=== PATIENT | male | born 1990 | race Caucasian/White ===

== ENCOUNTER 2021-05-04 11:18 | Emergency (ER) | payer BC, OTHER | END 2021-05-04 15:06 | disposition home or self-care (01) | LOC: ER1 11:18 | DX: J06.9 Acute upper respiratory infection, unspecified (principal); Z20.822 Contact with and (suspected) exposure to COVID-19; E11.9 Type 2 diabetes mellitus without complications | CPT/HCPCS: 99283; U0002 ==

== ENCOUNTER 2021-06-27 10:19 | Emergency (ER) | payer OTHER ==
[~2021-06-27] VITALS: Ht 180.3 cm; Wt 72.6 kg
[2021-06-27 11:43] LABS: BORDETELLA PARAPERTUSSIS Not Detected (Not Detectd); BORDETELLA PERTUSSIS Not Detected (Not Detectd); CHLAMYDIA PNEUMONIAE Not Detected (Not Detectd); CORONAVIRUS HKU1 Not Detected (Not Detectd); CORONAVIRUS NL63 Not Detected (Not Detectd); CORONAVIRUS OC43 Not Detected (Not Detectd); CORONOAVIRUS 229E Not Detected (Not Detectd); HUMAN METAPNEUMOVIRUS Not Detected (Not Detectd); HUMAN RHINOVIRUS/ENTEROVIRUS Not Detected (Not Detectd); INFLUENZA A Not Detected (Not Detectd); INFLUENZA B Not Detected (Not Detectd); MYCOPLASMA PNEUMONIAE Not Detected (Not Detectd); PARAINFLUENZA VIRUS 1 Not Detected (Not Detectd); PARAINFLUENZA VIRUS 2 Not Detected (Not Detectd); PARAINFLUENZA VIRUS 3 Not Detected (Not Detectd); PARAINFLUENZA VIRUS 4 Not Detected (Not Detectd); RESPIRATORY SYNCYTIAL VIRUS Not Detected (Not Detectd)
[2021-06-27 11:50] LABS: HEMOGLOBIN 16.1 gm/dl (14.0-17.5); RED BLOOD COUNT 5.14 M/UL (4.20-5.50); WHITE BLOOD COUNT 3.7 K/UL (4.5-11.0)
[2021-06-27 12:04] LABS: BUN/CREATININE RATIO 13 (0-10)
[2021-06-27 13:04] LABS: SARS-CoV-2 DETECTED (Not Detectd)
[2021-06-27] MEDS ORDERED: BROMFED DM COU473 ML PO (13:49)
== END 2021-06-27 15:39 | disposition home or self-care (01) ==
LOC: ER1 10:19
PROVIDERS: Nurse Practitioner
DX: U07.1 COVID-19 (principal); E11.9 Type 2 diabetes mellitus without complications; I10 Essential (primary) hypertension; J45.909 Unspecified asthma, uncomplicated; F84.0 Autistic disorder; F17.210 Nicotine dependence, cigarettes, uncomplicated; Z23 Encounter for immunization
CPT/HCPCS: 71045; 80053; 85025; 87633; 99283; M0243

== ENCOUNTER 2021-08-31 13:02 | Emergency (ER) | payer OTHER ==
[~2021-08-31 13:02] MED LIST: BROMFED DM COU473 ML PO
[2021-08-31] MEDS ORDERED: AUGMENTIN 875-1 EACH PO (15:41)
== END 2021-08-31 16:27 | disposition home or self-care (01) ==
LOC: ER1 13:02
DX: J32.9 Chronic sinusitis, unspecified (principal); E11.9 Type 2 diabetes mellitus without complications; Z20.822 Contact with and (suspected) exposure to COVID-19
CPT/HCPCS: 99283; U0002

== ENCOUNTER 2021-09-03 20:23 | Emergency (ER) | payer OTHER ==
[~2021-09-03 20:23] MED LIST changes: +AUGMENTIN 875-1 EACH PO
[2021-09-03 21:13] LABS: HEMOGLOBIN 18.4 gm/dl (14.0-17.5); RED BLOOD COUNT 5.88 M/UL (4.20-5.50); WHITE BLOOD COUNT 6.9 K/UL (4.5-11.0)
[2021-09-03 21:42] LABS: BUN/CREATININE RATIO 19 (0-10)
[2021-09-03] MEDS ORDERED: CYCLOBENZAPRINE10 MG PO (23:11)
[2021-09-03] MEDS ORDERED: HYDROCODON-ACE1 EAC4 PO (23:11)
== END 2021-09-04 00:05 | disposition home or self-care (01) ==
LOC: ER1 20:23
PROVIDERS: Emergency Medicine
DX: M51.36 Other intervertebral disc degeneration, lumbar region (principal); E11.9 Type 2 diabetes mellitus without complications; I10 Essential (primary) hypertension
CPT/HCPCS: 72128; 72131; 80053; 81001; 82009; 82803; 82962; 85025; 85652; 86140; 96374; 96375; 99283; J1885; J2270; J2405; J2920

== ENCOUNTER 2021-11-22 20:12 | Emergency (ER) | payer OTHER ==
[~2021-11-22 20:12] MED LIST changes: +CYCLOBENZAPRINE10 MG PO; +HYDROCODON-ACE1 EAC4 PO
[2021-11-22 21:12] LABS: HEMOGLOBIN 16.4 gm/dl (14.0-17.5); RED BLOOD COUNT 5.49 M/UL (4.20-5.50); WHITE BLOOD COUNT 5.5 K/UL (4.5-11.0)
[2021-11-22 21:31] LABS: BUN/CREATININE RATIO 15 (0-10)
[2021-11-23] MEDS ORDERED: ASPIRIN CHEWABL81 MG PO (02:09)
== END 2021-11-23 02:15 | disposition home or self-care (01) ==
LOC: ER1 20:12
PROVIDERS: Physician Assistant
DX: U07.1 COVID-19 (principal); E11.9 Type 2 diabetes mellitus without complications; F17.220 Nicotine dependence, chewing tobacco, uncomplicated
CPT/HCPCS: 0240U; 71045; 80053; 82550; 82553; 84484; 85025; 85379; 93005; 99285

== ENCOUNTER 2022-02-27 15:31 | Emergency (ER) | payer OTHER ==
[~2022-02-27 15:31] MED LIST changes: +ASPIRIN CHEWABL81 MG PO
[2022-02-27 16:23] LABS: HEMOGLOBIN 17.4 gm/dl (14.0-17.5); RED BLOOD COUNT 5.63 M/UL (4.20-5.50); WHITE BLOOD COUNT 7.5 K/UL (4.5-11.0)
[2022-02-27 16:47] LABS: BUN/CREATININE RATIO 23 (0-10)
== END 2022-02-27 18:43 | disposition home or self-care (01) ==
LOC: ER1 15:31
PROVIDERS: Emergency Medicine
DX: G56.32 Lesion of radial nerve, left upper limb (principal)
CPT/HCPCS: 70450; 73030; 80053; 82550; 82553; 83605; 84484; 85025; 93005; 99284

== ENCOUNTER → 2022-04-07 | Outpatient (CLI) | payer OTHER | LOC: KOH-I 14:21 | DX: M25.512 Pain in left shoulder (principal); R07.9 Chest pain, unspecified; E55.9 Vitamin D deficiency, unspecified; E11.9 Type 2 diabetes mellitus without complications; S29.011A Strain of muscle and tendon of front wall of thorax, initial encounter | CPT/HCPCS: 71046; 73030 ==

== ENCOUNTER 2022-06-12 14:47 | Emergency (ER) | payer OTHER ==
[2022-06-12 15:47] LABS: HEMOGLOBIN 15.7 gm/dl (14.0-17.5); RED BLOOD COUNT 5.1 M/UL (4.20-5.50); WHITE BLOOD COUNT 4.1 K/UL (4.5-11.0)
[2022-06-12 16:14] LABS: BUN/CREATININE RATIO 15 (0-10)
== END 2022-06-12 21:00 | disposition home or self-care (01) ==
LOC: ER1 14:47
PROVIDERS: Physician Assistant Medical
DX: R07.89 Other chest pain (principal); E11.65 Type 2 diabetes mellitus with hyperglycemia; I10 Essential (primary) hypertension
CPT/HCPCS: 71045; 80053; 82550; 82553; 82962; 84484; 85025; 85379; 93005; 99285